=== PATIENT | male | born 1980 | race Caucasian/White ===

== ENCOUNTER 2020-02-20 06:20 | Observation (INO) | payer OTHER, SELFPAY ==
[2020-02-20] VITALS (13 sets, daily range): BP systolic 129–163; BP diastolic 75–97; PULSE 58–112; RESP 15–22; TEMP 36.1–37.4; O2SAT 90–100; BMI 31.5
--- NOTE | 2020-02-20 | PATH_ITS ---
[facility] Accession Number: [id number] . 01 Material submitted: . gallbladder - GALLBLADDER AND CONTENTS . 01 Clinical history: . SURGERY . 02 Diagnosis: Gallbladder and Contents, Cholecystectomy: Mild chronic cholecystitis. No evidence of neoplasm. MRV 02/24/2020 1115 Local . 02 Electronically signed: . Porter Tong MD, PhD, Pathologist NPI- [id number] . 01 Gross description: . The specimen is received in formalin, labeled gallbladder and consists of a 3.0 x 2.0 x 1.5 cm gallbladder with a 0.2 cm in diameter cystic duct. The serosa is nuñez-green and wrinkled. Opening reveals a nuñez-green velvety mucosa. The specimen contains green viscous bile with no choleliths identified. The wall thickness measures 0.1 cm. [employer] Architect sections are submitted, to include the en face cystic duct margin (blue) in cassette A1. ([id number]) /[facility] 02/21/2020 1729 Local . 02 Pathologist provided ICD-10: K81.1 . 02 CPT . 816819 Performed at: 01 [facility] [address] [place] [address], [place], [place] [id number] MD Emilio Vasquez MD Phone: [phone] Performed at: 02 [facility] [address] [place], [place] [id number] MD Kathryn Mendez MD Phone: [phone]
--- NOTE | 2020-02-20 08:54 | PC.NURSE ---
Day shift: Pt on unit at approx 0850 via BLS. Reports nausea and pain RUQ of 2/10. Oriented to room and call light. He is A&Ox3. Calm and cooperative. Denies any chest pain.
--- NOTE | 2020-02-20 09:46 | P.HP_ITS ---
History of Present Illness History of Present Illness Date Patient Seen: 02/20/20 Time Patient Seen: 09:46 Chief complaint: Cholecystitis Narrative: This is a 39-year-old man with no significant medical history, who complains of right upper quadrant pain radiating to his right upper back, which he says has been bothering him since Monday. He had a similar episode in his 20s, which lasted for about a week. Otherwise he has never had these symptoms since then. He went into the ER at [facility] in [place]. He had a right upper quadrant ultrasound which showed gallstones and a positive sonographic Connor sign, but no significant gallbladder wall thickening or pericholecystic fluid. His labs were significant for a slightly got a elevated lipase of 432 (upper limits of normal were 393 for that lab). His hepatic panel was normal, with an AST and ALT of 27 and 61, and a bilirubin of 0.5. He had a COVID test at the outside hospital which resulted at 3:13 a.m. this morning and was read as negative. He was given morphine 4 mg and Zosyn 4.5 g. He was transferred to our hospital because they do not have beds at the hospital. Past medical history: The patient denies any medical history, but per the chart note from the outside hospital it list a stroke in 1981, which would have been at age 1 year Also listed in his outside notes are asthma, and depression Past surgical history: Lipoma removal from forehead in 2017 Allergies: Sulfa antibiotics, reaction is hives Family history: Denies family history of diabetes, cancers, hepatobiliary disorder Social: Denies alcohol use, reports occasional marijuana use Meds: Denies any medications ROS: Constitutional: Denies chills, Denies excessive sweating, reports a headache, reports malaise, denies unexplained weight loss Eyes: Denies change in vision, Denies itchy eyes, Denies loss of vision and Denies other visual disturbances ENT: Denies difficulty swallowing, Denies neck pain, Denies neck swelling, Denies dry mouth Cardiovascular: Denies chest pain, Denies fainting, Denies palpitations, Denies irregular heart rhythm, Denies shortness of breath, Denies KRUGER, Denies leg swelling Respiratory: Denies SOB, Denies dyspnea, and Denies chronic cough Gastrointestinal: Reports right upper quadrant pain, denies epigastric pain, Denies change in bowel habits, Denies change in stool character, Denies melena, Denies hematochezia, Denies dysphagia, Denies heartburn, Denies reflux, reports nausea, reports vomiting, Denies hematemesis Genitourinary: Denies hematuria, Denies pyuria and Denies urinary frequency, Denies inguinal hernia, Denies groin pain Musculoskeletal: Denies abnormal gait, Denies myalgias, Denies arthralgias, Denies limited range of motion and Denies neck pain Integumentary/Breasts: Denies bleeding lesions, Denies change in pigmentation, Denies changing lesions, Denies new lesions, Denies rash, Denies skin swelling, Denies sores and Denies jaundice Neurologic: Denies unsteady gait, Denies behavioral changes, Denies confusion, Denies syncope, Denies headache(s), Denies loss of vision, Denies neuropathic pain, Denies memory loss and Denies weakness Psychiatric: Denies behavioral changes, Denies change in appetite, Denies confusion, Denies difficulty concentrating, Denies auditory hallucinations Endocrine: Denies excessive sweating and Denies palpitations Hematologic/Lymphatic: Denies easy bleeding, Denies easy bruising and Denies lymphadenopathy Allergic/Immunologic: Denies itchy eyes, rash, swelling PE: GENERAL: Alert, comfortable, mild distress due to nausea. Appears stated age. Answers questions promptly and appropriately. Vital signs noted. HENT: Normocephalic, atraumatic. Hearing intact. EYES: Conjunctiva pink, sclera white, no periorbital swelling. CARDIOVASCULAR: Regular rate. No pedal edema. RESPIRATORY: Non-tachypneic, breathing comfortably on room air. GASTROINTESTINAL: Abdomen soft and non-distended; tender to palpation the right upper quadrant and right upper back, no significant epigastric tenderness, no masses GENITALURINARY: No flank tenderness. MUSCULOSKELETAL: Equal tone and mass bilaterally. SKIN: Warm, dry, soft, appropriate color for ethnicity. No other lesions, rashes, or wounds. NEURO: Alert and Oriented X 3. No gross sensory deficits, or cognitive issues. PSYCH: Appropriate affect and mood. Exam Vital Signs (past 8 hours): - 02/20/20 08:35 Temperature 97.2 F L Pulse Rate 63 Respiratory Rate 15 Blood Pressure 163/97 H Pulse Oximetry 100 Oxygen Flow Rate 0 Objective Imaging US - abdomen: Radiologist's impression: Cholelithiasis, no gallbladder wall thickening, no pericholecystic fluid, positive Connor sign, non enlarged bile ducts, CBD is 5 mm Assessment & Plan Assessment and plan (1) Acute gallstone pancreatitis: Status: Acute (2) Cholelithiasis: Status: Acute (3) Cholecystitis: Status: Acute Assessment & Plan narrative: This is a 39-year-old man transferred to our hospital with a suspected gallstone pancreatitis and acute cholecystitis. I had a long discussion with him about his ultrasound and lab findings from the [facility]. He does have a slightly elevated lipase, although he has minimal epigastric tenderness. Explained to him the risks and benefits of going ahead with laparoscopic cholecystectomy, and that in the setting of gallstone pancreatitis he has a higher risk of perioperative complications, worsening pancreatitis, prolonged hospital stay, open operation, bile duct injury, bile leak, need for additional procedures, need for transfer to tertiary care. I recommended that we recheck his labs, and as long as his lipase is not increasing, and is labs otherwise look appropriate, we will go ahead with laparoscopic possible open cholecystectomy today. Risks and benefits of surgery were discussed including all those mentioned above. Plan: Repeat labs right now NPO, IV fluids, IV pain med, IV antiemetic Schedule for laparoscopic possible open cholecystectomy today, pending lab results are consistent with acute cholecystitis, and no significant pancreatitis COVID-19 COVID-19 status: Negative (Test was performed at [facility] at 3:30 a.m. on 02/20/2020, and documented as a negative result) Result date/Date tested (Pos, Neg/Pending): 02/20/20 Time Spent With Patient Time with patient: Greater than 35 minutes Quality VTE Deep Vein Thrombosis/Pulmonary Embolism Present on Admission: No
[2020-02-20] MEDS: ONDANSETRON 4 MG/2 ML INJ IV ×3 (09:53→22:50)
[2020-02-20] MEDS: LACTATED RINGERS 1,000 ML 125 ML IV ×3 (09:54→12:57)
[2020-02-20] MEDS: PIPERACILLIN-TAZO 3.375 GM/50 ML FROZ.PIGGY IV ×3 (10:16→21:27)
[2020-02-20 10:17] LABS: Add Manual Diff / Slide Review NO; Basophils Absolute Auto 0 /uL (0-100); Basophils Percent Auto 0.4 % (0-2); Eosinophils Absolute Auto 100 /uL (0-450); Eosinophils Percent Auto 0.7 % (2-4); Hematocrit 48.8 % (41-53); Hemoglobin 16.7 g/dL (13.5-17.5); Lymphocytes Absolute Auto 1300 /uL (1100-4500); Lymphocytes Percent Auto 17.2 % (25-40); Mean Corpuscular HGB Conc 34.3 % (30-36); Mean Corpuscular Hemoglobin 29.3 PG (26-34); Mean Corpuscular Volume 85.3 fL (80-100); Monocytes Absolute Auto 500 /uL (0-900); Monocytes Percent Auto 6.4 % (3-14); Neutrophils Absolute Auto 5700 /uL (1500-7000); Neutrophils Percent Auto 75.3 % (50-75); Platelet Count 280 X10^3/uL (150-400); Red Blood Cell Count 5.72 X10^6/uL (4.5-5.9); Red Cell Distribution Width 13.1 % (11.6-14.8); White Blood Cell Count 7.5 X10^3/uL (4.5-11.0)
[2020-02-20 10:34] LABS: Alanine Aminotransferase 110 IU/L (<50); Albumin 5.1 g/dL (3.5-5.0); Albumin Globulin Ratio 1.4 (1.0-2.8); Alkaline Phosphatase 93 U/L (38-126); Aspartate Aminotransferase 118 IU/L (17-59); BUN Creatinine Ratio 25.3 (6-22); Blood Urea Nitrogen 20 mg/dL (9-20); Calcium 9.8 mg/dL (8.4-10.2); Carbon Dioxide 29 mmol/L (22-32); Chloride 103 mmol/L (98-107); Estimated Glomerular Filt Rate > 60.0 mL/min (>60); Globulin 3.6 g/dL (1.7-4.1); Glucose 127 mg/dL (70-100); HEMOLYSIS < 15 (0-50); Lipase 230 U/L (23-300); Potassium 3.9 mmol/L (3.4-5.1); Sodium 139 mmol/L (137-145); Total Protein 8.7 g/dL (6.3-8.2)
--- NOTE | 2020-02-20 11:48 | SUR.OPER ---
Supine on padded OR bed, head on pillow, arms secured on padded arm boards at <90 degrees abduction, legs uncrossed, safety belt at thigh, tape over blanket over lower legs.
--- NOTE | 2020-02-20 11:52 | PC.NURSE ---
Day shift: Pt off unit for surgery at approx 1110. SL.
[2020-02-20] MEDS: FAMOTIDINE 20 MG/50 ML PIGGYBACK 200 MG IV (12:01)
[2020-02-20] MEDS: METOCLOPRAMIDE 10 MG/2 ML INJ IV (12:02)
--- NOTE | 2020-02-20 12:08 | PM.PREOP ---
Pre-operative Note COVID-19 COVID-19 status: Negative Result date/Date tested (Pos, Neg/Pending): 02/20/20 Interval Note History & Physical reviewed/Exam performed by Physician: Yes Changes to H&P: Yes H&P completed within 30 days and has changed as indicated here:: Repeat labs indicative of acute cholecystitis without choledocholithiasis or active pancreatitis, lipase is normal
[2020-02-20] MEDS: BUPIVACAINE 0.25% W/ EPI (PF) 10 ML VIAL 20 ML INJ (12:32)
[2020-02-20] MEDS: Non-Formulary Medication (Indocyanine Green 25 MG) 25 EACH IV (12:33)
--- NOTE | 2020-02-20 12:57 | PC.NURSE ---
Day shift: Pt remain off of AC unit at this time (1300).
--- NOTE | 2020-02-20 13:15 | CM.IDA ---
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 Original Note: Initial DCP Assessment Note Patient is a 39 yo male, resident of [place]. Patient transferred from [facility] in [place] d/t bed availability. PCP: Adalberto Rodriguez Payer: Lalo WALKER Reviewed chart. Patient off the floor for surgery, lap vs open lauren scheduled and conducted by Dr Nixon this afternoon. According to chart review, patient will likely return home upon medical clearance, although, this ADULT EDUCATION MANAGER will plan to follow closely and assess DC needs post operatively. No NOK/contact information on chart currently. ANAMIKA Bañuelos
--- NOTE | 2020-02-20 13:25 | PM.OP.1 ---
Operative Date/Time/Diagnoses Date of procedure: 02/20/20 Time of procedure: 13:25 Pre-op diagnosis: Acute cholecystitis Post-op diagnosis: same Procedure & Clinicians Procedure: Laparoscopic cholecystectomy Same procedure as scheduled: Yes Indications: 39 yo man with imaging, labs, exam, and history consistent with acute cholecystitis Surgeon: Parvin Nixon Anesthesia Type: General Operative Notes Findings: Thickened gall bladder with acute and chronic inflammatory adhesions Specimen(s): other (gall bladder with contents) Estimated Blood Loss (mL): 5 Blood products transfused: none Procedure in detail: The patient was brought into the operating room and placed supine on the OR table. Sequential compression devices were placed on both legs and turned on. Appropriate perioperative antibiotics were given prior to the start of surgery. General anesthesia was induced the patient was intubated. The abdomen was prepped and draped in sterile fashion. Surgical time-out was conducted. Local anesthetic was injected under the skin just superior to the umbilicus and a 5 mm vertical incision was made at this site. The umbilical stalk was grasped with a Sharmaine and elevated. A Veress needle was passed through the fascia into proper position. The position was tested with a saline drop test which was appropriate for intra-abdominal Veress needle placement. The abdomen was then insufflated in the usual fashion. Once insufflated to 15 mm Hg the Veress needle was removed and a 5 mm optical trocar was placed under direct vision using a 5 mm 30 degree scope. Once the camera was inside the abdomen I took a look around. There was no injury from port placement. Two additional ports were placed in a similar fashion in the right upper quadrant and a 10 mm port was placed in the epigastrium. The gallbladder was grasped and elevated and the infundibulum was retracted laterally to the patient's right using bowel graspers through the two lateral ports. Omental adhesions were taken down. This exposed the gallbladder hilum and allowed for dissection of the cystic duct and cystic artery. The gall bladder was thickened and inflamed. There was quite a bit of dense scar tissue throughout the gallbladder hilum. This required tedious careful dissection to avoid injury to the bile ducts. I carefully dissected the fat and inflammatory scar tissue off of the gall bladder hilum and dissected out the cystic duct and artery. I opened the serosal covering of the gall bladder going up each side of the gall bladder medially and laterally. Once the cystic duct and artery were completely dissected out, I was able to see liver behind and between both structures without any other structures in the way, giving us the critical view of safety. At this point I triply clipped both structures on the patient's side and put a single clip on the gallbladder side of both the cystic duct and artery. Both structures were then divided with laparoscopic [place]. Following this the gallbladder was gradually dissected free from the liver. Once the gallbladder was entirely freed, it was placed inside an Endo-Catch bag and removed through the epigastric port site. I did not have to enlarge the epigastric site in order to get the gallbladder out. Once it was out and passed off to the back table I then took another look inside the abdomen. I suctioned clean any remaining blood or fluid on the lateral side of the liver and in the subhepatic space. There was no active bleeding or leaking of bile from the gallbladder fossa or from the clipped stumps of the cystic duct and artery. At this point the insufflation was removed from the abdomen and the epigastric port site was closed with 0 Vicryl suture in the fascia, 3 O Vicryl in the subcutaneous layers, and 4 Monocryl in the skin. The remaining port sites were closed with 4 Monocryl in the skin. Each port site was sealed with Dermabond. Local anesthetic was given at each of the port sites and in the fascia. This concluded the procedure. At this point the needle sponge and instrument counts were correct. The gallbladder was passed off the table for pathology. Patient was awakened from anesthesia and extubated. He was transferred to the postanesthesia care unit in stable condition. Complications: none Complications: none Post-operative Condition: stable Disposition: PACU
[2020-02-20] MEDS: MEPERIDINE 50 MG/ML INJ 12.5 MG IV (13:51)
--- NOTE | 2020-02-20 13:58 | SUR.PHASEI ---
Received to PACU at 1344 after general anesthesia. Airway patent, self maintained. Report received from NIMESH See and Dr Calderon. O2 sats 90% on room air. Placed on 2LNC. Demerol given for rigors with good effect.
--- NOTE | 2020-02-20 14:34 | PC.NURSE ---
Day shift: Pt back on AC unit at approx 1430 from PACU. Pt is Tired. Reports pain ABD 2/10. Encouraged to take deep breaths. On continuous O2 monitor. RA 94%. 4 lap sites glue. CDI. Redness noted. IV fluids running per JUN. VS WNL.
--- NOTE | 2020-02-20 14:37 | SUR.PHASEI ---
Transferred to room 218. Received in room by NIMESH Monahan. Abdomen assessed together. VSS.
[2020-02-20] MEDS: MORPHINE 2 MG/ML INJ IV ×2 (16:01→21:30)
[2020-02-20] MEDS: HEPARIN 5,000 UNIT/ML VIAL 5000 UNIT SUBCUT (21:27)
[2020-02-20] MEDS: DOCUSATE 100 MG CAPSULE PO (21:28)
[2020-02-21 00:15] VITALS: BP 134/82; PULSE 111; RESP 20; TEMP 37.2; O2SAT 96
[2020-02-21] MEDS: LACTATED RINGERS 1,000 ML 80 ML IV (00:24)
[2020-02-21] MEDS: PIPERACILLIN-TAZO 3.375 GM/50 ML FROZ.PIGGY IV (04:15)
[2020-02-21] MEDS: ACETAMINOPHEN 325 MG TABLET 650 MG PO (04:18)
[2020-02-21 04:30] VITALS: BP 140/81; PULSE 96; RESP 16; TEMP 36.9; O2SAT 96
[2020-02-21 05:14] LABS: Add Manual Diff / Slide Review NO; Basophils Absolute Auto 0 /uL (0-100); Basophils Percent Auto 0.2 % (0-2); Eosinophils Absolute Auto 0 /uL (0-450); Eosinophils Percent Auto 0.1 % (2-4); Hematocrit 45.3 % (41-53); Hemoglobin 15.5 g/dL (13.5-17.5); Lymphocytes Absolute Auto 1300 /uL (1100-4500); Lymphocytes Percent Auto 12.2 % (25-40); Mean Corpuscular HGB Conc 34.2 % (30-36); Mean Corpuscular Hemoglobin 29.3 PG (26-34); Mean Corpuscular Volume 85.6 fL (80-100); Monocytes Absolute Auto 900 /uL (0-900); Monocytes Percent Auto 8.7 % (3-14); Neutrophils Absolute Auto 8500 /uL (1500-7000); Neutrophils Percent Auto 78.8 % (50-75); Platelet Count 305 X10^3/uL (150-400); Red Blood Cell Count 5.29 X10^6/uL (4.5-5.9); Red Cell Distribution Width 13.2 % (11.6-14.8); White Blood Cell Count 10.8 X10^3/uL (4.5-11.0)
[2020-02-21 05:19] LABS: Alanine Aminotransferase 119 IU/L (<50); Albumin 4.2 g/dL (3.5-5.0); Albumin Globulin Ratio 1.4 (1.0-2.8); Alkaline Phosphatase 77 U/L (38-126); Aspartate Aminotransferase 74 IU/L (17-59); BUN Creatinine Ratio 17.9 (6-22); Blood Urea Nitrogen 15 mg/dL (9-20); Calcium 9.2 mg/dL (8.4-10.2); Carbon Dioxide 26 mmol/L (22-32); Chloride 103 mmol/L (98-107); Estimated Glomerular Filt Rate > 60.0 mL/min (>60); Globulin 3.1 g/dL (1.7-4.1); Glucose 128 mg/dL (70-100); HEMOLYSIS < 15 (0-50); Potassium 3.6 mmol/L (3.4-5.1); Sodium 135 mmol/L (137-145); Total Protein 7.3 g/dL (6.3-8.2)
--- NOTE | 2020-02-21 05:49 | PC.NURSE ---
Pt is A and O x4 VVS, 96% on RA. No N or V on noc shift, pt tolerating jello, black tea and apple juice. Pt rates pain 2/10 for epigastric and MEEHAN pain.
[2020-02-21 08:00] VITALS: BP 142/85; PULSE 84; RESP 15; TEMP 37.2; O2SAT 96
[2020-02-21] MEDS: DOCUSATE 100 MG CAPSULE PO (09:14)
[2020-02-21] MEDS: HEPARIN 5,000 UNIT/ML VIAL 5000 UNIT SUBCUT (09:14)
[2020-02-21] MEDS: OXYCODONE IR 5 MG TABLET PO ×2 (09:18→13:22)
--- NOTE | 2020-02-21 13:35 | PC.NURSE ---
Day shift note: Patient awake, alert, and pleasant. VSS and afebrile. Tolerating regular lunch diet, no N/V. Abdominal pain controlled with Oxycodone as ordered. Abdomen soft, active BS, + Flatus. Ambulating in room independently. Discharge instructions given to both patient and girlfriend. Discussed importance of F/U with Dr. Nixon in 2-3 weeks, new medications, s/sx of infection, and activity limitations. Both Verbalized understanding of instructions. Home via private vehicle in stable condition.
== END 2020-02-21 14:00 | disposition home or self-care (01) ==
PROVIDERS: Admitting Provider Surgery; PCP Family Medicine; Referring Provider Surgery; Visit Provider Surgery
PROC: 0FT44ZZ Resection of Gallbladder, Percutaneous Endoscopic Approach (ICD-10-PCS; CPT 47562; principal; 2020-02-20 12:00)
DX: N30.20 Other chronic cystitis without hematuria (principal); K82.8 Other specified diseases of gallbladder
CPT/HCPCS: 47562; 36415; 80053; 82962; 83690; 85025; 99220; G0378; G0379; J0330; J0360; J1100; J1644; J2175; J2270; J2405; J2543; J2704; J2765; J3010